=== PATIENT | male | born 1965 ===

== ENCOUNTER 2022-10-19 06:26 | Day surgery (SDC) | payer OTHER ==
[~2022-10-19] VITALS: Ht 177.8 cm; Wt 99.8 kg
[~2022-10-19 06:26] MED LIST: AMLODIP PO; HYDROCHLOROTH12.5 MG PO; OMEPRAZO PO
== END 2022-10-19 14:00 | disposition home or self-care (01) ==
LOC: CIR.AMB 06:26
PROVIDERS: ATTEND Orthopaedic Surgery Hand Surgery
DX: M20.022 Boutonniere deformity of left finger(s) (principal); I10 Essential (primary) hypertension; Z86.16 Personal history of COVID-19; Z20.822 Contact with and (suspected) exposure to COVID-19